=== PATIENT | female | born 2000 ===

== ENCOUNTER 2023-12-13 10:09 | Emergency (ER) | payer OTHER ==
[2023-12-13 10:45] LABS: BASOPHILS PERCENT AUTO 0.2 % (0.0-1.0); EOSINOPHILS PERCENT AUTO 0.9 % (1.0-3.0); HEMATOCRIT 40.3 % (37.0-47.0); HEMOGLOBIN 14.3 g/dL (12.0-16.0); LYMPHOCYTES PERCENT AUTO 20.8 % (20.5-50.1); MEAN CORPUSCULAR HEMOGLOBIN 29.9 pg (27.0-34.0); MEAN CORPUSCULAR HGB CONC 35.5 g/dL (33.0-35.0); MEAN CORPUSCULAR VOLUME 84.3 fL (80-100); MONOCYTES PERCENT AUTO 6.6 % (2-8); NEUTROPHILS PERCENT AUTO 71.5 % (42.2-75.2); PLATELET COUNT,PLT 268 10^3/uL (150-450); RED BLOOD CELL COUNT 4.78 10^6/uL (4.2-5.4); WHITE BLOOD CELL COUNT,WBC 9.8 10^3/uL (5.0-10.0)
[2023-12-13 11:11] LABS: ALBUMIN 3.2 g/dL (3.4-5.0); BILIRUBIN TOTAL 0.3 mg/dL (0.2-1.0); BUN/CREATININE RATIO 15.5 (No establ ref range); CALCIUM 9.4 mg/dL (8.5-10.1); CREATININE 0.71 mg/dL (0.55-1.02); EST CRCL DRUG DOSING (CG) 117.33 mL/min; PROTEIN TOTAL,TP 6.3 g/dL (6.4-8.2)
[2023-12-13 11:13] LABS: A/G RATIO 1.03
[2023-12-13 11:54] LABS: APPEARANCE,URINE CLEAR (CLEAR); BILIRUBIN,URINE NEGATIVE (NEGATIVE); COLOR,URINE YELLOW (YELLOW); GLUCOSE,URINE 500 (NEGATIVE); KETONES,URINE NEGATIVE (NEGATIVE); LEUKOCYTE ESTERASE,URINE NEGATIVE (NEGATIVE); NITRITE,URINE NEGATIVE (NEGATIVE); OCCULT BLOOD,URINE TRACE-INTACT (NEGATIVE); PH,URINE 6.5 (5.0-9.0); PROTEIN,URINE 30 (NEGATIVE); UROBILINOGEN,URINE 0.2 mg/dL (0.2-1.0)
[2023-12-13 12:17] LABS: EPITHELIAL CELLS,URINE MODERATE /HPF (NOT SEEN)
[2023-12-13 12:18] LABS: BACTERIA,URINE MODERATE /HPF (0-FEW/HPF)
[2023-12-13 12:19] LABS: MUCUS,URINE RARE /LPF (NOT SEEN); RBC,URINE 0-5 /HPF (0-5)
== END 2023-12-13 12:30 | disposition home or self-care (01) ==
LOC: DL.ED 10:09
DX: R07.89 Other chest pain (principal); O24.012 Pre-existing type 1 diabetes mellitus, in pregnancy, second trimester; E10.65 Type 1 diabetes mellitus with hyperglycemia; Z3A.19 19 weeks gestation of pregnancy
CPT/HCPCS: 36415; 80053; 81001; 85025; 85379; 99285